=== PATIENT | female | born 1980 | race Caucasian/White ===

== ENCOUNTER 2018-11-14 08:42 | Day surgery (SDC) | payer BC ==
[2018-11-14] MEDS: LACTATED RINGER'S 1,000 ML IV (10:11)
[2018-11-14] MEDS ORDERED: MIDAZOLAM 1 MG/ML 2 ML INJ (10:24)
[2018-11-14] MEDS ORDERED: ROPIVACAINE 0.5 % 30 ML VIAL (10:24)
[2018-11-14] MEDS ORDERED: OXYCODONE/ACETAMINOPHEN (5/325) TAB PO (11:00)
[2018-11-14] MEDS ORDERED: ALBUTEROL 0.083% (NEB) 2.5 MG/3 ML AMP HHN (11:00)
[2018-11-14] MEDS ORDERED: HYDROmorphONE 1 MG/5 ML IV SYRINGE IV (11:00)
[2018-11-14] MEDS ORDERED: FENTAnyl 50 MCG/ML VIAL IV ×3 (11:00)
[2018-11-14] MEDS ORDERED: DIPHENHYDRAMINE 50 MG INJ IV (11:00)
[2018-11-14] MEDS ORDERED: FENTAnyl 50 MCG/ML VIAL (11:16)
[2018-11-14] MEDS ORDERED: KETOROLAC 30 MG INJ IV (11:30)
[2018-11-14] MEDS ORDERED: morphine 2 MG INJ IV (11:30)
[2018-11-14] MEDS ORDERED: ACETAMINOPHEN 325 MG TAB PO (11:30)
[2018-11-14] MEDS: BACITRACIN/POLYMYXIN 28.35 GM OINT TOP (11:55)
[2018-11-14] MEDS: POLYMYXIN/BACITRACIN 1L IRRIG (11:56)
[2018-11-14] MEDS: ROPIVACAINE 0.5 % 30 ML VIAL (11:56)
[2018-11-14] MEDS ORDERED: SUGAMMADEX SODIUM 200 MG/2 ML VIAL IV (13:04)
[2018-11-14] MEDS ORDERED: SUCCINYLCHOLINE CHLORIDE 100 MG/5 ML SYG IV (13:04)
[2018-11-14] MEDS ORDERED: PROPOFOL 20 ML (13:04)
[2018-11-14] MEDS ORDERED: LIDOCAINE 100 MG SYRINGE (13:04)
[2018-11-14] MEDS ORDERED: ROCURONIUM 50 MG INJ (13:04)
[2018-11-14] MEDS ORDERED: CEFAZOLIN 1 GM INJ (13:04)
[2018-11-14] MEDS: HYDROmorphONE 1 MG/5 ML IV SYRINGE IV ×2 (13:38→13:44)
[2018-11-14] MEDS: MEPERIDINE 25 MG INJ IV (13:39)
[2018-11-14] MEDS: METOCLOPRAMIDE 10 MG INJ IV (13:39)
[2018-11-14] MEDS: ONDANSETRON 4 MG INJ IV (16:23)
== END 2018-11-14 17:35 | disposition home or self-care (01) ==
LOC: SDS 08:42
DX: S83.512D Sprain of anterior cruciate ligament of left knee, subsequent encounter (principal); S83.282D Other tear of lateral meniscus, current injury, left knee, subsequent encounter; X58.XXXD Exposure to other specified factors, subsequent encounter
CPT/HCPCS: 29881; 82306; 84703